=== PATIENT | female | born 1995 | race Caucasian/White ===

== ENCOUNTER 2016-12-18 01:10 | Inpatient (IN) | payer OTHER ==
[~2016-12-18] VITALS: Ht 149.9 cm; Wt 80.0 kg
[2016-12-18 01:29] VITALS: Ht 149.9 cm; Wt 80.0 kg
[2016-12-18 01:30] VITALS: BP 129/71; PULSE 87; RESP 18
[2016-12-18] MEDS ORDERED: FERR134T PO (01:33)
[2016-12-18] MEDS ORDERED: PRENAT PO (01:33)
--- NOTE | 2016-12-18 02:09 | TRIAGE ---
OB Triage Datetime Report Generated by CPN: 12/18/2016 02:09 Datetime: 12/18/2016 02:04 Stage of : OB Triage Labor Evaluation Frequency: 5-7 Monitor Mode: External Quality: Mild Pattern: Normal: <= 5 Contractions in 10 Minutes Resting Tone Arco: Relaxed Heart Rate FHR Baseline Rate: 120 Monitor Mode: External US FHR Baseline Changes: No Baseline Change Variability: Moderate 6-25 bpm Accelerations: 15X15 Decelerations: None Category: Category I Vaginal Exam Dilatation (cms): 3.0 Effacement (%): 90 Station: -2 Exam By: E YOSVANY Membrane Status: Ruptured Amniotic Fluid Color: Clear Amniotic Fluid Amount: Moderate Amniotic Fluid Odor: Normal Vaginal Bleeding: None Pool: Positive Nitrazine: Positive Cervix, Consistency: Soft Cervix, Position: Midposition Presentation 'A': Cephalic Datetime: 12/18/2016 01:26 Time of Arrival: 12/18/2016 01:08 EGA: 38.2 Arrived By: Wheelchair Arrived From: Home Chief Complaint: W/ c/o leaking sm amt clear fluid beg 0000 Movement: Present Contractions: Occasional Time Contractions Began: 12/18/2016 01:00 Rupture of Membranes: Unsure Vaginal Bleeding: None Vaginal Discharge: Present Recent Sexual Intercouse: Denies Abdominal Trauma: Not Applicable Patient Complaints: Cramping Time Provider Notified: 12/18/2016 02:08 Provider Notified: Dr Bryson Initial Plan: EFM,SVE Datetime: 12/18/2016 01:20 Stage of : OB Triage Maternal Assessment Level of Consciousness: Fully Conscious Headache: Denies Blurred Vision: No Nausea/Vomiting: Denies RUQ Epigastric Pain: Denies Facial Edema: None Labor Evaluation Frequency: placed Monitor Mode: External Resting Tone Arco: Relaxed Monitor Mode: External US Comments: FHT 130 Pain Assessment Pain Scale: 1 Pain Presence: Intermittent Pain Type: Cramping Pain Location: Abdomen
[2016-12-18] MEDS ORDERED: METHYLERGONOVINE 0.2 MG INJ IM PRN (02:30)
[2016-12-18] MEDS ORDERED: MISOPROSTOL 200 MCG TAB PR PRN (02:30)
[2016-12-18] MEDS ORDERED: BUTORPHANOL 2 MG INJ IV PRN (02:30)
[2016-12-18] MEDS ORDERED: LIDOCAINE 1% (MPF) 30 ML INJ INJ PRN (02:30)
[2016-12-18] MEDS ORDERED: IBUPROFEN 600 MG TAB PO PRN (02:30)
[2016-12-18] MEDS ORDERED: OXYTOCIN 30 UNITS/LR 500 ML IV PRN (02:30)
[2016-12-18] MEDS ORDERED: OXYTOCIN 30 UNITS/LR 500 ML IV SCH ×3 (02:30)
[2016-12-18] MEDS ORDERED: CARBOPROST 250 MCG INJ IM PRN (02:30)
--- NOTE | 2016-12-18 02:50 | HP ---
Date/Time of Note Date/Time of Note DATE: 12/18/16 TIME: 02:41 OB - History Hx of Present Free Text/Dictation 21 Year-old G1 with SIUP at 38 2/7 weeks presents with a chief complaint of SROM at midnight. She has been receiving her care with [facility]/Dr. Tapia. She states good movement. She denies nausea, vomiting, shortness of breath, chest pain, and abdominal pain between contractions, headache, visual changes, vaginal bleeding : 1 Care: Good Care Ultrasounds: Normal mid trimester US Obstetrical Complications: None Medical Complications: None Past Family/Social History * Past Medical, Surgical, Family and Obstetric Histories reviewed from chart. Blood Type: O+ Rubella: immune RPR/VDRL: Negative GBS Status: Negative HBsAG: Negative OB Admission Exam Vital Signs Vital Signs Vital Signs Date Time Temp Pulse Resp B/P Pulse Ox O2 Delivery O2 Flow Rate FiO2 12/18/16 01:30 98.5 87 18 129/71 Room Air Physical Exam HEENT: WNL Heart: Rhythm Normal Lungs: Clear Abdomen: WNL Extremities: Normal Cervical Dilatation: 3cm (/90/-2/ceph/SROM/clear) Station: -2 Membranes: Ruptured Amniotic Fluid: Clear Heart Rate: 140's Accelerations: Accelerations Present Decelerations: No Decelerations Varibility: Moderate Contractions on Admission: 6-10 Minutes Apart Intensity: Moderate OB Assessment/Plan Other plan: 21 Year-old G1 with SIUP at 38 2/7 weeks presents with a chief complaint of SROM in labor. - FHR: No sign of metabolic acidosis- Category I - Continious EFM, toco - CBC, blood type and screen - Analgesia options with R/B/A discussed in detail with patient - Epidural per patient request - Please see the orders - O+/Rubella: Immune/GBS negative Admission, procedures, expectations, risks and possible complications have been discussed in detail with the patient. Risk of vaginal delivery including but not limited to bleeding, infection, cervical laceration, placental retention, injury to fetus, blood transfusion, blood transfusion related infection, risk of anesthesia, adhesion, cervical laceration, episiotomy/laceration, possible delivery with risk of bleeding, infection, injury to other organs ( bowel, bladder, ureter, vessels, nerves), injury to fetus, blood transfusion, blood transfusion related infection, risk of anesthesia, scar and hernia formation, needs for future , removal of uterus or any other indicated surgery discussed with the patient. She expressed understanding and repeats the risks. All of her questions were answered; all appropriate consents will be signed. PHYSICIAN'S VERIFICATION OF INFORMED CONSENT: The patient was counseled regarding the procedure, its indications, risks, potential complications and alternatives and any questions were answered. Consent was obtained. PLANNED PROCEDURE/TREATMENT: Vaginal delivery with possible vacuum/forceps delivery episiotomy, repair of laceration possible delivery PHYSICIAN'S VERIFICATION OF INFORMED CONSENT FOR BLOOD TRANSFUSION: There is a reasonable possibility that blood transfusion will be necessary as a result of the patient's procedure. I have discussed the following with the patient/patient's legal used equipment sales representative: An explanation of the benefits and risks of the transfusion of blood or blood products and the possible alternatives. Al questions have been answered to the patient's/patients legal representatives satisfaction. INFORMED CONSENT: The patient has been informed of: - The nature of the proposed care, treatment, services, medic- Potential benefits, risks or side effects, including potential problems related to recuperation. - The likelihood of achieving care treatment and service goals. - Reasonable alternatives to the proposed care, treatment and service. - The relevant risks, benefits and side effects related to alternatives, including the possible results of not receiving care, treatment and services. - When indicated, any limitations on the confidentiality of information learned from or about the patient. - If appropriate, the risks, benefits and alternatives of the drugs to be used for sedation/analgesia including moderate sedation. - If appropriate, patient has been provided information on the risks, benefits and alternatives to the transfusion of blood and/or blood products. ANTONIA MARAVILLA Dec 18, 2016 02:50
[2016-12-18 03:59] LABS: ADD SCAN DIFF NO
[2016-12-18] MEDS: LACTATED RINGER'S 1,000 ML IV SCH ×2 (03:59→09:13)
[2016-12-18] MEDS ORDERED: LACTATED RINGER'S 1,000 ML IV PRN (04:00)
[2016-12-18 04:28] LABS: INR 0.9; PROTIME 12.1 Sec (12.2-14.2); PT RATIO 0.9
[2016-12-18 04:29] LABS: PARTIAL THROMBOPLASTIN TIME 26.3 Sec (25.0-35.0)
[2016-12-18 04:44] LABS: BASOPHILS % 0.2 % (0.0-2.0); EOSINOPHILS # 0.1 10^3/ul (0.0-0.5); EOSINOPHILS % 0.9 % (0.0-7.0); HEMATOCRIT 38.5 % (37.0-47.0); HEMOGLOBIN 13.4 g/dl (12.0-16.0); LYMPHOCYTES # 2.9 10^3/ul (0.8-2.9); LYMPHOCYTES % 25.7 % (15.0-51.0); MEAN CORPUSCULAR HEMOGLOBIN 32.2 pg (29.0-33.0); MEAN CORPUSCULAR HGB CONC 34.8 g/dl (32.0-37.0); MEAN CORPUSCULAR VOLUME 92.5 fl (82.0-101.0); MEAN PLATELET VOLUME 10.1 fl (7.4-10.4); MONOCYTE # 0.7 10^3/ul (0.3-0.9); MONOCYTES % 5.8 % (0.0-11.0); NEUTROPHIL # 7.5 10^3/ul (1.6-7.5); NEUTROPHILS % 66.9 % (39.0-77.0); PLATELET COUNT 244 10^3/UL (140-415); RED BLOOD COUNT 4.16 10^6/ul (4.20-5.40); RED CELL DISTRIBUTION WIDTH 12.7 % (11.5-14.5); WHITE BLOOD COUNT 11.3 10^3/ul (4.8-10.8)
--- NOTE | 2016-12-18 10:56 | RADRPT ---
PROCEDURE: US OB. CLINICAL INDICATION: Contractions TECHNIQUE: Multiple sonographic images of the pelvis were obtained. Transabdominal imaging only w as performed. The images were reviewed on a PACS workstation. COMPARISON: No prior studies are available for comparison. FINDINGS: There is a single live intrauterine gestation. Cardiac activity is present with 117 beats per minut e. position is cephalic. Measurements were made in order to determine age. The results are as follows: BPD = 9.00 cm HC = 32.41 cm AC = 31.51 cm FL = 6.73 cm. Estimated gestational age of approximately 35 weeks 6 days. The estimated date of delivery is 01/16/2017. The EFW = 2682 g, 7.2 %ile. The placenta is anterior. There is no evidence for an abruption or placenta previa. There are no adnexal masses. IMPRESSION: 1. Single live intrauterine gestation of approximately 35 weeks 6 days, by ultrasound criteria. 2. The estimated date of delivery is 01/16/2017. 3. The estimated weight is 2682 g, 7.2 %ile. RPTAT: HH .Marjorie Dennison MD, Date Time Electronically viewed and signed by .Marjorie Dennison MD, on 12/18/2016 10:56 .G/
[2016-12-18] MEDS ORDERED: FENTAnyl 2MCG/ML-ROPIV 0.2% 100 ML ONE (11:57)
[2016-12-18] MEDS ORDERED: DIPHENHYDRAMINE 50 MG INJ IV PRN (12:00)
[2016-12-18] MEDS ORDERED: PROCHLORPERAZINE 10 MG INJ IV PRN (12:00)
[2016-12-18] MEDS ORDERED: ONDANSETRON 4 MG INJ IV PRN ×2 (12:00→19:00)
[2016-12-18] MEDS ORDERED: KETOROLAC 30 MG INJ IV PRN (12:00)
[2016-12-18] MEDS ORDERED: morphine 2 MG INJ IV PRN ×2 (12:00)
[2016-12-18] MEDS ORDERED: NALOXONE (0.4 MG/ML) INJ IV PRN (12:00)
[2016-12-18] MEDS ORDERED: ONDANSETRON 4 MG INJ IV ONE (12:00)
[2016-12-18] MEDS ORDERED: FENTAnyl 2MCG/ML-ROPIV 0.2% 100 ML BAG EPI SCH (12:00)
[2016-12-18] MEDS ORDERED: CITRIC ACID/NA CITRATE 30 ML CUP PO ONE (12:00)
[2016-12-18] MEDS ORDERED: AMPICILLIN 2 GM/NS (PMX) 100 ML IV STA (13:03)
[2016-12-18] MEDS ORDERED: AMPICILLIN 2 GM/NS (PMX) 100 ML ONE (13:06)
[2016-12-18] MEDS ORDERED: MINERAL OIL LIGHT 10 ML VIAL TOP ONE (14:00)
--- NOTE | 2016-12-18 16:51 | LDN ---
Date/Time of Note Date/Time of Note DATE: 12/18/16 TIME: 16:45 Delivery Summary Normal spontaneous vaginal delivery of a baby boy from JEFF position shoulders delivered without any difficulties rest of the baby's body followed placenta spontaneous expulsion inspected complete , post delivery vaginal inspection patient had sustained small right periurethral laceration approximately 1.2 cm which repaired with 4-0 chromic catgut, no perineal laceration estimated blood loss 200-250 cc Weeks of Gestation 38 weeks 2 days Placenta Delivered: Spontaneously Meconium: none Episiotomy: No Laceration repair: Right periurethral laceration approximately 1.2 cm repaired with 4-0 chromic catgut Anesthesia type: Epidural Estimated blood loss: 250 Sponge & Needle done & correct: Yes All needle counts correct: Yes Any foreign bodies felt in the: No Problems: Delivery Information Sex Sex: male Apgars 1 Minute: 8 5 Minute: 9 Suctioning Nose & mouth suctioned at blessing: Yes Delee suction performed: No Umbilical Cord Umbilical cord with: 3 Vessels Cord presentations: nuchal cord Cord Blood was obtained: Yes ALISHA TOMLIN MD Dec 18, 2016 16:51
[2016-12-18] MEDS ORDERED: AMPICILLIN 1 GM/NS (PMX) 50 ML IV SCH (17:00)
[2016-12-18 18:40] VITALS: BP 128/77; PULSE 97; RESP 18
[2016-12-18] MEDS: OXYTOCIN 30 UNITS/LR 500 ML IV SCH ×2 (18:47→22:37)
[2016-12-18] MEDS ORDERED: OXYCODONE/ASPIRIN (4.88/325) TAB PO PRN ×2 (19:00)
[2016-12-18] MEDS ORDERED: ACETAMINOPHEN/CODEINE #3 TAB PO PRN ×2 (19:00)
[2016-12-18] MEDS ORDERED: WITCH HAZEL/GLYCERIN PAD PR PRN (19:00)
[2016-12-18] MEDS ORDERED: ACETAMINOPHEN 325 MG TAB PO PRN (19:00)
[2016-12-18] MEDS ORDERED: DIBUCAINE 1% 30 GM OINT PR PRN (19:00)
[2016-12-18] MEDS ORDERED: BENZOCAINE 20% 56 ML SPRAY TOP PRN (19:00)
[2016-12-18] MEDS ORDERED: LANOLIN 7 GM TUBE TOP PRN (19:00)
[2016-12-18 20:00] VITALS: BP 131/67; PULSE 89; RESP 18
[2016-12-18] MEDS: SENNA/DOCUSATE NA (8.6MG/50MG) TAB PO SCH (21:10)
[2016-12-19 00:30] VITALS: BP 131/65; PULSE 88; RESP 19
[2016-12-19] MEDS: IBUPROFEN 600 MG TAB PO SCH ×4 (00:47→17:33)
[2016-12-19 04:15] VITALS: BP 97/56; PULSE 87; RESP 18
[2016-12-19 08:04] LABS: ADD SCAN DIFF NO
[2016-12-19 08:08] LABS: BASOPHILS % 0.2 % (0.0-2.0); EOSINOPHILS # 0.1 10^3/ul (0.0-0.5); EOSINOPHILS % 0.7 % (0.0-7.0); HEMATOCRIT 27.5 % (37.0-47.0); HEMOGLOBIN 9.2 g/dl (12.0-16.0); LYMPHOCYTES # 2.5 10^3/ul (0.8-2.9); LYMPHOCYTES % 21.2 % (15.0-51.0); MEAN CORPUSCULAR HEMOGLOBIN 31.4 pg (29.0-33.0); MEAN CORPUSCULAR HGB CONC 33.5 g/dl (32.0-37.0); MEAN CORPUSCULAR VOLUME 93.9 fl (82.0-101.0); MONOCYTE # 0.6 10^3/ul (0.3-0.9); MONOCYTES % 5.3 % (0.0-11.0); NEUTROPHIL # 8.4 10^3/ul (1.6-7.5); PLATELET COUNT 180 10^3/UL (140-415); RED BLOOD COUNT 2.93 10^6/ul (4.20-5.40); RED CELL DISTRIBUTION WIDTH 12.8 % (11.5-14.5); WHITE BLOOD COUNT 11.7 10^3/ul (4.8-10.8)
[2016-12-19 09:30] VITALS: BP 115/58; PULSE 102; RESP 18
[2016-12-19] MEDS: SENNA/DOCUSATE NA (8.6MG/50MG) TAB PO SCH ×2 (09:43→20:13)
[2016-12-19 11:48] VITALS: BP 117/60; RESP 18
--- NOTE | 2016-12-19 12:48 | PN ---
Date/Time of Note Date/Time of Note DATE: 12/19/16 TIME: 12:47 OB Subjective Subjective Subjective day 1 Afebrile vital signs stable abdomen soft uterus firm lochia normal extremity normal ALISHA TOMLIN MD Dec 19, 2016 12:48
[2016-12-19 15:50] VITALS: BP 127/69; PULSE 108; RESP 18
[2016-12-19 20:00] VITALS: BP 125/61; PULSE 97; RESP 18
[2016-12-20 04:00] VITALS: BP 94/50; PULSE 77; RESP 18
[2016-12-20] MEDS: IBUPROFEN 600 MG TAB PO SCH ×4 (06:53→17:57)
[2016-12-20 08:00] VITALS: BP 110/58; PULSE 89; RESP 18
[2016-12-20] MEDS: SENNA/DOCUSATE NA (8.6MG/50MG) TAB PO SCH (08:58)
[2016-12-20] MEDS ORDERED: MEASLES,MUMPS,RUBELLA VACCINE INJ SC* ONE (09:00)
--- NOTE | 2016-12-20 13:40 | PD.PPDC ---
ONLINE ADVERTISING DIRECTOR Discharge Instruction Condition Patient Condition: Good Diet Diet: Resume Regular Diet Activity/Restrictions Activity: Normal Activity May Shower Restrictions: No Exercising No Lifting No Driving No Sexual Activity Nothing in the Vagina No [place] No Tampons, douche Follow-up Follow-up with Physician: Week/Weeks Return to clinic for TUBE BENDER Instructions: Fever greater than 101 Worsening abdominal pain Excessive Vaginal Bleeding More than 2 pads per hour Unable to tolerate diet OB Instructions: Breast Tenderness Blurried Vision Headache ALISHA TOMLIN MD Dec 20, 2016 13:40
--- NOTE | 2016-12-20 13:42 | DS ---
Date/Time of Note Date/Time of Note DATE: 12/20/16 TIME: 13:40 Discharge Summary Admission/Discharge Info Admit Date/Time Dec 18, 2016 at 02:08 Discharge Date/Time December 20, 2016 at 1400 Final Diagnosis Post normal vaginal delivery Patient Condition: Good Procedures Normal spontaneous vaginal delivery Hx of Present Illness Term Hospital Course Satisfactory Home Meds Reported Medications Ferrous Sulfate (Iron) 134 Mg Tablet, 134 MG PO DAILY, TAB 12/18/16 Multivit/Min/Fol Ac/Iron/Pren* ( S*) 1 Tab Tab, 1 TAB PO DAILY, TAB 12/18/16 Follow-up Plan instructions given recommended patient to make appointment in 2 weeks to be seen at the clinic ALISHA TOMLIN MD Dec 20, 2016 13:42
[2016-12-20 16:00] VITALS: BP 109/59; PULSE 75; RESP 18
== END 2016-12-20 18:30 | disposition home or self-care (01) | DRG 775 ==
LOC: L-D 01:10 → OBT 01:10 → L-D 02:08 → OBT 02:08 → PP1 18:35 → UNDODISIN 12-20 13:35
PROVIDERS: ADMIT Obstetrics & Gynecology; ATTEND Obstetrics & Gynecology
PROC: 10E0XZZ Delivery of Products of Conception, External Approach (ICD-10-PCS; principal; 2016-12-18)
PROC: 0UQMXZZ Repair Vulva, External Approach (ICD-10-PCS; 2016-12-18)
DX: O71.82 Other specified trauma to perineum and vulva (principal); Z37.0 Single live birth; Z3A.38 38 weeks gestation of pregnancy
CPT/HCPCS: 62319; 76815; 85025; 85610; 85730; 86592; 86900; 86901; 87340; G0463; J0290; J2590; J3010; J7120